=== PATIENT | female | born 2000 | race Caucasian/White ===

== ENCOUNTER 2019-06-12 16:17 | Emergency (ER) | payer MEDICAID ==
[2019-06-12] MEDS ORDERED: Ondansetron 4 MG/2 ML SDV IVPUSH ONE (17:04)
[2019-06-12] MEDS ORDERED: Sodium Chloride 0.9% 10 ML Syringe FLUSH PRN (17:04)
[2019-06-12] MEDS ORDERED: Sodium Chloride 0.9% 1,000 ML IV SCH (17:15)
[2019-06-12] MEDS ORDERED: Ketorolac 30 MG/ML SDV IVPUSH SCH (17:30)
--- NOTE | 2019-06-12 19:12 | EDM.PDOC ---
ED HPI GENERAL MEDICAL PROBLEM - General Chief Complaint: Abdominal Pain Stated Complaint: STOMACH PAIN Time Seen by Provider: 06/12/19 16:53 Source of Information: Reports: Patient, RN Notes Reviewed - History of Present Illness INITIAL COMMENTS - FREE TEXT/NARRATIVE: 19-year-old female comes in with abdominal pain. She states that she does have abdominal pain off and on much of the time but this is been more severe than typical, especially since last evening. She did not sleep well last night. Pain is primarily lower abdomen more so on the right than the left without radiation. Nausea this afternoon, has not eaten since breakfast. No vomiting or diarrhea. She did have a BM earlier today that she states was normal. Is been no fever or chills. No Prior abdominal surgeries. Treatments CRITICAL POWER TECHNICIAN: Reports: Other (see below) Other Treatments CRITICAL POWER TECHNICIAN: none Right Abdomen Pain Score (Numeric/FACES): 10 - Related Data Allergies Allergy/AdvReac Type Severity Reaction Status Date / Time No Known Allergies Allergy Verified 06/12/19 16:50 Home Meds: Home Meds Albuterol Sulfate [Albuterol Sulfate Hfa] 1 puff INH ASDIRECTED 06/12/19 [ History] Past Medical History Respiratory History: Reports: Asthma - Past Surgical History HEENT Surgical History: Reports: Oral Surgery Social & Family History - Tobacco Use Smoking Status *Q: Never Smoker - Caffeine Use Caffeine Use: Reports: Coffee, Soda - Recreational Drug Use Recreational Drug Use: No ED ROS GENERAL - Review of Systems Review Of Systems: See Below Constitutional: Denies: Fever, Chills HEENT: Reports: No Symptoms Respiratory: Denies: Shortness of Breath Cardiovascular: Denies: Chest Pain GI/Abdominal: Reports: Abdominal Pain, Decreased Appetite. Denies: Constipation , Diarrhea, Vomiting : Reports: No Symptoms Musculoskeletal: Reports: No Symptoms Skin: Reports: No Symptoms Neurological: Reports: No Symptoms ED EXAM, GI/ABD - Physical Exam Exam: See Below General Appearance: Alert, Mild Distress Throat/Mouth: Normal Inspection Neck: Supple Respiratory/Chest: No Respiratory Distress, Lungs Clear, Normal Breath Sounds Cardiovascular: Regular Rate, Rhythm GI/Abdominal Exam: Soft, Tender (very mild tenderness mid abd and lower mid abd) , Other (miminal tenderness RLQ). No: Guarding, Rebound Neurological: Alert, Oriented, No Motor/Sensory Deficits Skin Exam: Warm, Dry, Normal Color Course - Vital Signs Last Recorded V/S: Last Vital Signs Temp 98.1 F 06/12/19 16:44 Pulse 68 06/12/19 16:44 Resp 20 06/12/19 16:44 BP 125/81 06/12/19 16:44 Pulse Ox 100 06/12/19 16:44 - Orders/Labs/Meds Labs: Laboratory Tests 06/12/19 06/12/19 06/12/19 Range/Units 17:09 17:09 17:09 WBC 11.91 H (3.98-10.04) K/mm3 RBC 4.63 (3.98-5.22) M/mm3 Hgb 13.3 (11.2-15.7) gm/dl Hct 40.5 (34.1-44.9) % MCV 87.5 (79.4-94.8) fl MCH 28.7 (25.6-32.2) pg MCHC 32.8 (32.2-35.5) g/dl RDW Std Deviation 41.1 (36.4-46.3) fL Plt Count 358 (182-369) K/mm3 MPV 10.0 (9.4-12.3) fl Neut % (Auto) 64.4 (34.0-71.1) % Lymph % (Auto) 22.3 (19.3-51.7) % [place] % (Auto) 10.9 (4.7-12.5) % Eos % (Auto) 1.6 (0.7-5.8) Baso % (Auto) 0.5 (0.1-1.2) % Neut # (Auto) 7.68 H (1.56-6.13) K/mm3 Lymph # (Auto) 2.65 (1.18-3.74) K/mm3 [place] # (Auto) 1.30 H (0.24-0.36) K/mm3 Eos # (Auto) 0.19 (0.04-0.36) K/mm3 Baso # (Auto) 0.06 (0.01-0.08) K/mm3 Manual Slide Review Normal smear Sodium 142 (136-145) mEq/L Potassium 3.7 (3.5-5.1) mEq/L Chloride 106 (98-107) mEq/L Carbon Dioxide 25 (21-32) mEq/L Anion Gap 14.7 (5-15) BUN 15 (7-18) mg/dL Creatinine 0.9 (0.55-1.02) mg/dL Est Cr Clr Drug Dosing 92.56 mL/min Estimated GFR (MDRD) > 60 (>60) mL/min BUN/Creatinine Ratio 16.7 (14-18) Glucose 90 (74-106) mg/dL Calcium 9.1 (8.5-10.1) mg/dL Total Bilirubin 0.4 (0.2-1.0) mg/dL AST 17 (15-37) U/L ALT 26 (14-59) U/L Alkaline Phosphatase 84 (46-116) U/L C-Reactive Protein 0.3 (<1.0) mg/dL Total Protein 8.2 (6.4-8.2) g/dl Albumin 4.0 (3.4-5.0) g/dl Globulin 4.2 gm/dL Albumin/Globulin Ratio 1.0 (1-2) HCG, Qual (NEGATIVE) Urine Color (Yellow) Urine Appearance (Clear) Urine pH (5.0-8.0) Ur Specific [place] (1.005-1.030) Urine Protein (Negative) Urine Glucose (UA) (Negative) Urine Ketones (Negative) Urine Occult Blood (Negative) Urine Nitrite (Negative) Urine Bilirubin (Negative) Urine Urobilinogen (0.2-1.0) Ur Leukocyte Esterase (Negative) Urine RBC (0-5) /hpf Urine WBC (0-5) /hpf Ur Squamous Epith Cells (0-5) /hpf Urine Bacteria (FEW) /hpf Urine Mucus (FEW) /hpf 06/12/19 06/12/19 Range/Units 17:09 18:01 WBC (3.98-10.04) K/mm3 RBC (3.98-5.22) M/mm3 Hgb (11.2-15.7) gm/dl Hct (34.1-44.9) % MCV (79.4-94.8) fl MCH (25.6-32.2) pg MCHC (32.2-35.5) g/dl RDW Std Deviation (36.4-46.3) fL Plt Count (182-369) K/mm3 MPV (9.4-12.3) fl Neut % (Auto) (34.0-71.1) % Lymph % (Auto) (19.3-51.7) % [place] % (Auto) (4.7-12.5) % Eos % (Auto) (0.7-5.8) Baso % (Auto) (0.1-1.2) % Neut # (Auto) (1.56-6.13) K/mm3 Lymph # (Auto) (1.18-3.74) K/mm3 [place] # (Auto) (0.24-0.36) K/mm3 Eos # (Auto) (0.04-0.36) K/mm3 Baso # (Auto) (0.01-0.08) K/mm3 Manual Slide Review Sodium (136-145) mEq/L Potassium (3.5-5.1) mEq/L Chloride (98-107) mEq/L Carbon Dioxide (21-32) mEq/L Anion Gap (5-15) BUN (7-18) mg/dL Creatinine (0.55-1.02) mg/dL Est Cr Clr Drug Dosing mL/min Estimated GFR (MDRD) (>60) mL/min BUN/Creatinine Ratio (14-18) Glucose (74-106) mg/dL Calcium (8.5-10.1) mg/dL Total Bilirubin (0.2-1.0) mg/dL AST (15-37) U/L ALT (14-59) U/L Alkaline Phosphatase (46-116) U/L C-Reactive Protein (<1.0) mg/dL Total Protein (6.4-8.2) g/dl Albumin (3.4-5.0) g/dl Globulin gm/dL Albumin/Globulin Ratio (1-2) HCG, Qual Negative (NEGATIVE) Urine Color Yellow (Yellow) Urine Appearance Clear (Clear) Urine pH 6.0 (5.0-8.0) Ur Specific [place] > or = 1.030 (1.005-1.030) Urine Protein Negative (Negative) Urine Glucose (UA) Negative (Negative) Urine Ketones Negative (Negative) Urine Occult Blood Negative (Negative) Urine Nitrite Negative (Negative) Urine Bilirubin Negative (Negative) Urine Urobilinogen 0.2 (0.2-1.0) Ur Leukocyte Esterase Negative (Negative) Urine RBC 0-5 (0-5) /hpf Urine WBC 5-10 H (0-5) /hpf Ur Squamous Epith Cells 10-20 H (0-5) /hpf Urine Bacteria Rare (FEW) /hpf Urine Mucus Moderate H (FEW) /hpf Meds: Medications Discontinued Medications Generic Name Dose Route Start Last Admin Trade Name Freq PRN Reason Stop Dose Admin Sodium Chloride 1,000 mls @ 999 mls/hr 06/12/19 17:15 06/12/19 17:22 Normal Saline IV 999 mls/hr ONETIME DELL Administration Ketorolac Tromethamine 30 mg 06/12/19 17:30 06/12/19 17:22 Toradol IVPUSH 30 mg ONETIME DELL Administration Ondansetron HCl 4 mg 06/12/19 17:04 06/12/19 17:21 Zofran IVPUSH 06/12/19 17:05 4 mg ONETIME ONE Administration Sodium Chloride 10 ml 06/12/19 17:04 06/12/19 17:37 Saline Flush FLUSH 10 ml ASDIRECTED PRN Administration Keep Vein Open Departure - Departure Time of Disposition: 20:01 Disposition: Home, Self-Care 01 Condition: Fair Clinical Impression: Abdominal pain Qualifiers: Abdominal location: lower abdomen, unspecified Qualified Code(s): R10.30 - Lower abdominal pain, unspecified - Discharge Information Instructions: Abdominal Pain, Adult, [id number] Referrals: PCP,None [Primary Care Provider] - Forms: ED Department Discharge, ED Return to Work/School Form Additional Instructions: Clear liquids and very bland diet as tolerated. Plenty of water to maintain hydration. Stool softener or laxative as needed. Follow-up clinic tomorrow if discomfort not better as expected. Return to ED if symptoms worsening for reevaluation or if unable to get into the clinic tomorrow for recheck. Sepsis Event Note - Evaluation Sepsis Screening Result: No Definite Risk - Focused Exam Date Exam was Performed: 06/14/19 Time Exam was Performed: 02:21
--- NOTE | 2019-06-12 20:04 | CR ---
Abdomen: Supine view of the abdomen was obtained. Scattered gas within small bowel and colon is seen. At this point this appears to be within normal limits. No abnormal calcifications or soft tissue abnormality is seen. Bony structures are unremarkable. Impression: 1. Nothing acute is seen on supine abdominal x-ray. 2. If patient continues to be symptomatic, follow-up study could be obtained in 24 hours. Diagnostic code #1 Study was dictated in MDT
== END 2019-06-12 20:18 | disposition home or self-care (01) ==
LOC: JD.ED 16:17
DX: R10.31 Right lower quadrant pain (principal); J45.909 Unspecified asthma, uncomplicated
CPT/HCPCS: 36415; 74018; 80053; 81001; 84703; 85025; 86140; 96361; 96374; 96375; 99284; J1885; J2405; J7030

== ENCOUNTER 2019-11-17 15:51 | Emergency (ER) | payer MEDICAID ==
[2019-11-17] MEDS ORDERED: Aluminum Hydroxide/Magnesium Hydroxide/Simethicone Susp 30 ML Cup PO ONE (16:19)
[2019-11-17] MEDS ORDERED: Dicyclomine 10 MG Cap PO ONE (16:19)
--- NOTE | 2019-11-17 16:19 | EDM.PDOC ---
ED HPI GENERAL MEDICAL PROBLEM - General Chief Complaint: Cardiovascular Problem Stated Complaint: CHEST PAIN AND SOB Time Seen by Provider: 11/17/19 16:13 Source of Information: Reports: Patient History Limitations: Reports: No Limitations - History of Present Illness INITIAL COMMENTS - FREE TEXT/NARRATIVE: 19-year-old female presents to the ED for evaluation of dyspnea. She has known asthma. She has used her inhaler a multitude of occasions starting yesterday and last night and today without any relief. She has subjective dyspnea. Her sats are 100% on room air. She is afebrile. She has not ate much today. She feels pressure discomfort in the pit of her stomach but no nausea or vomiting and no burping or belching. She even tried drinking soda pop with no burping or belching. She does not usually experience any heartburn or GERD. She admits that she works at the [employer] here in [place] and does not wear a protective mask. She states she cannot breathe with it on. Therefore she has potential exposure to COVID 19. She has no diarrhea. No change in smell or taste. Onset: Gradual Onset Date: 11/16/19 (Developed gradually worsening dyspnea yesterday afternoon and is persisted overnight and today.) Duration: Hour(s):, Getting Worse Location: Reports: Chest (Subjective dyspnea.), Abdomen (Pressure in the epigastrium or pit of her stomach) Quality: Reports: Ache (Ache pressure discomfort in the pit of her stomach witho ut burping or belching.) Severity: Moderate Improves with: Reports: None Worsens with: Reports: None Context: Denies: Activity, Exercise, Lifting, Sick Contact, Trauma, Other Associated Symptoms: Reports: Chest Pain, Loss of Appetite, Malaise, Shortness of Breath. 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 (see below) (.) Middle Chest Pain Score (Numeric/FACES): 7 Upper Abdomen Pain Score (Numeric/FACES): 7 - Related Data Allergies Allergy/AdvReac Type Severity Reaction Status Date / Time No Known Allergies Allergy Verified 06/12/19 16:50 Home Meds: Home Meds Albuterol Sulfate [Albuterol Sulfate Hfa] 1 puff INH ASDIRECTED 06/12/19 [History] Albuterol Sulfate [Albuterol Sulfate Hfa] 18 gm IH Q3H PRN #1 hfa.aer.ad 0 11/17/19 [Rx] predniSONE [Prednisone] 20 mg PO BID #10 tablet 11/17/19 [Rx] Past Medical History Respiratory History: Reports: Asthma - Past Surgical History HEENT Surgical History: Reports: Oral Surgery Social & Family History - Caffeine Use Caffeine Use: Reports: Coffee, Soda - Living Situation & Occupation Living situation: Reports: Single Occupation: Employed ED ROS GENERAL - Review of Systems Review Of Systems: See Below Constitutional: Reports: Malaise, Weakness, Fatigue, Decreased Appetite. Denies: Fever, Chills, Weight Loss HEENT: Reports: No Symptoms Respiratory: Reports: Shortness of Breath, Wheezing, Cough. Denies: Pleuritic Chest Pain (There is no wheezing), Sputum, Hemoptysis, Other Cardiovascular: Reports: Chest Pain (Occasional nonproductive cough), Dyspnea on Exertion. Denies: Blood Pressure Problem, Claudication ( lower retrosternal pressure discomfort more in the pit of her stomach.), Edema, Lightheadedness, Orthopnea Endocrine: Reports: No Symptoms GI/Abdominal: Reports: Abdominal Pain (Epigastric pressure discomfort with no burping or belching or GERD.), Decreased Appetite. Denies: Constipation, Diarrhea, Difficulty Swallowing, Distension, Flatus, Hematemesis, Hematochezia, Melena, Mucous in Stool, Nausea, Stool Incontinence : Reports: No Symptoms Musculoskeletal: Reports: No Symptoms Skin: Reports: No Symptoms Neurological: Reports: No Symptoms Psychiatric: Reports: No Symptoms Hematologic/Lymphatic: Reports: No Symptoms Immunologic: Reports: No Symptoms ED EXAM, GENERAL - Physical Exam Exam: See Below Exam Limited By: No Limitations General Appearance: Alert, WD/WN, No Apparent Distress, Other (Temperature is 36.6 heart rate 81 respiratory of 20 with O2 sats of 99 to 100%. BP is 95/83.) Eye Exam: Bilateral Eye: Normal Inspection, PERRL Ears: Normal TMs Throat/Mouth: Normal Inspection, Normal Lips, Normal Teeth, Normal Oropharynx, Other (Normal) Head: Atraumatic, Normocephalic ( tonsils) Neck: Normal Inspection, Supple, Non-Tender, Full Range of Motion. No: Carotid Bruit, Lymphadenopathy (L), Lymphadenopathy (R) Respiratory/Chest: No Respiratory Distress, Lungs Clear, Normal Breath Sounds, No Accessory Muscle Use, Chest Non-Tender, Decreased Breath Sounds (Slightly decreased breath sounds of the right lung base.). No: Rhonchi, Wheezing Cardiovascular: Normal Peripheral Pulses, Regular Rate, Rhythm, No Edema, No Gallop, No Murmur, No Rub Peripheral Pulses: 3+: Carotid (L), Carotid (R), Posterior Tibial (L), Posterior Tibial (R), Dorsalis Pedis (L), Dorsalis Pedis (R) GI/Abdominal: Normal Bowel Sounds, Soft, Non-Tender, No Organomegaly, No Abnormal Bruit, No Mass, Pelvis Stable, Other (Mildly obese.) Back Exam: Normal Inspection, Full Range of Motion. No: CVA Tenderness (L), CVA Tenderness (R) Extremities: Normal Inspection, Normal Range of Motion, Non-Tender, No Pedal Edema Neurological: Alert, Oriented, CN II-XII Intact, Normal Cognition, Normal Gait Psychiatric: Normal Affect, Normal Mood Skin Exam: Warm, Dry, Intact, Normal Color, No Rash EKG INTERPRETATION EKG Date: 11/17/19 Time: 16:49 Rhythm: NSR Rate (Beats/Min): 80 [place]: Normal P-Wave: Present QRS: Normal ST-T: Other (Wave flattening in lead V3 nonspecific finding) QT: Normal EKG Interpretation Comments: Normal ECG Course - Vital Signs Last Recorded V/S: Last Vital Signs Temp 36.3 C 11/17/19 17:54 Pulse 90 11/17/19 17:54 Resp 20 11/17/19 17:54 BP 127/56 L 11/17/19 17:54 Pulse Ox 100 11/17/19 17:54 - Orders/Labs/Meds Orders: Active Orders 24 hr Category Date Time Status EKG Documentation Completion [RC] STAT Care 11/17/19 16:14 Active RT Aerosol Therapy [RC] ASDIRECTED Care 11/17/19 17:19 Active Albuterol/Ipratropium [DuoNeb 3.0-0.5 MG/3 ML] Med 11/17/19 17:18 Active 3 ml NEB Q4H PRN Medication Orders Albuterol/Ipratropium (Duoneb 3.0-0.5 Mg/3 Ml) 3 ml NEB Q4H PRN PRN Reason: Shortness Of Breath/wheezing Last Admin: 11/17/19 17:40 Dose: 3 ml Documented by: ALEXA Labs: Laboratory Tests 11/17/19 11/17/19 11/17/19 Range/Units 16:57 16:57 16:57 WBC 9.93 (3.98-10.04) K/mm3 RBC 4.45 (3.98-5.22) M/mm3 Hgb 12.7 (11.2-15.7) gm/dl Hct 38.4 (34.1-44.9) % MCV 86.3 (79.4-94.8) fl MCH 28.5 (25.6-32.2) pg MCHC 33.1 (32.2-35.5) g/dl RDW Std Deviation 41.3 (36.4-46.3) fL Plt Count 298 (182-369) K/mm3 MPV 9.6 (9.4-12.3) fl Neut % (Auto) 59.1 (34.0-71.1) % Lymph % (Auto) 27.0 (19.3-51.7) % [place] % (Auto) 10.3 (4.7-12.5) % Eos % (Auto) 2.4 (0.7-5.8) Baso % (Auto) 0.9 (0.1-1.2) % Neut # (Auto) 5.87 (1.56-6.13) K/mm3 Lymph # (Auto) 2.68 (1.18-3.74) K/mm3 [place] # (Auto) 1.02 H (0.24-0.36) K/mm3 Eos # (Auto) 0.24 (0.04-0.36) K/mm3 Baso # (Auto) 0.09 H (0.01-0.08) K/mm3 D-Dimer, Quantitative 0.28 (0.19-0.50) mg/L Sodium 137 (136-145) mEq/L Potassium 3.6 (3.5-5.1) mEq/L Chloride 104 (98-107) mEq/L Carbon Dioxide 25 (21-32) mEq/L Anion Gap 11.6 (5-15) BUN 17 (7-18) mg/dL Creatinine 0.8 (0.55-1.02) mg/dL Est Cr Clr Drug Dosing 104.14 mL/min Estimated GFR (MDRD) > 60 (>60) mL/min BUN/Creatinine Ratio 21.3 H (14-18) Glucose 76 (74-106) mg/dL Calcium 8.9 (8.5-10.1) mg/dL Ferritin (8-252) ng/ml Total Bilirubin 0.2 (0.2-1.0) mg/dL AST 20 (15-37) U/L ALT 28 (14-59) U/L Alkaline Phosphatase 79 (46-116) U/L Troponin I < 0.017 (0.00-0.056) ng/mL C-Reactive Protein 1.5 H* (<1.0) mg/dL Total Protein 7.9 (6.4-8.2) g/dl Albumin 3.6 (3.4-5.0) g/dl Globulin 4.3 gm/dL Albumin/Globulin Ratio 0.8 L (1-2) COVID-19 (DIMITRY) (NEGATIVE) 11/17/19 11/17/19 Range/Units 16:57 18:05 WBC (3.98-10.04) K/mm3 RBC (3.98-5.22) M/mm3 Hgb (11.2-15.7) gm/dl Hct (34.1-44.9) % MCV (79.4-94.8) fl MCH (25.6-32.2) pg MCHC (32.2-35.5) g/dl RDW Std Deviation (36.4-46.3) fL Plt Count (182-369) K/mm3 MPV (9.4-12.3) fl Neut % (Auto) (34.0-71.1) % Lymph % (Auto) (19.3-51.7) % [place] % (Auto) (4.7-12.5) % Eos % (Auto) (0.7-5.8) Baso % (Auto) (0.1-1.2) % Neut # (Auto) (1.56-6.13) K/mm3 Lymph # (Auto) (1.18-3.74) K/mm3 [place] # (Auto) (0.24-0.36) K/mm3 Eos # (Auto) (0.04-0.36) K/mm3 Baso # (Auto) (0.01-0.08) K/mm3 D-Dimer, Quantitative (0.19-0.50) mg/L Sodium (136-145) mEq/L Potassium (3.5-5.1) mEq/L Chloride (98-107) mEq/L Carbon Dioxide (21-32) mEq/L Anion Gap (5-15) BUN (7-18) mg/dL Creatinine (0.55-1.02) mg/dL Est Cr Clr Drug Dosing mL/min Estimated GFR (MDRD) (>60) mL/min BUN/Creatinine Ratio (14-18) Glucose (74-106) mg/dL Calcium (8.5-10.1) mg/dL Ferritin 36 (8-252) ng/ml Total Bilirubin (0.2-1.0) mg/dL AST (15-37) U/L ALT (14-59) U/L Alkaline Phosphatase (46-116) U/L Troponin I (0.00-0.056) ng/mL C-Reactive Protein (<1.0) mg/dL Total Protein (6.4-8.2) g/dl Albumin (3.4-5.0) g/dl Globulin gm/dL Albumin/Globulin Ratio (1-2) COVID-19 (DIMITRY) Negative (NEGATIVE) Meds: Medications Generic Name Dose Route Start Last Admin Trade Name Freq PRN Reason Stop Dose Admin Albuterol/Ipratropium 3 ml 11/17/19 17:18 11/17/19 17:40 Duoneb 3.0-0.5 Mg/3 Ml NEB 3 ml Q4H PRN Administration Shortness Of Breath/wheezing Discontinued Medications Generic Name Dose Route Start Last Admin Trade Name Freq PRN Reason Stop Dose Admin Al Hydroxide/Mg Hydroxide 30 ml 11/17/19 16:19 11/17/19 17:56 Mag-Al Plus PO 11/17/19 16:20 30 ml ONETIME ONE Administration Albuterol/Ipratropium Confirm 11/17/19 17:30 Duoneb 3.0-0.5 Mg/3 Ml Administered 11/17/19 17:31 Dose 3 ml .ROUTE .STK-MED ONE Dicyclomine HCl 20 mg 11/17/19 16:19 11/17/19 17:56 Bentyl PO 11/17/19 16:20 20 mg ONETIME ONE Administration - Radiology Interpretation Free Text/Narrative:: 19-year-old female presents to the ED with dyspnea. She has used her albuterol inhalers multiple 2 different times over the last 24 hours with no relief. On examination she is not wheezing. Her O2 sats are 99 to 100% on room air but she has subjective dyspnea. 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 Plan she will have a single view chest x-ray. Routine lab work and including a COVID-19 screen. - Re-Assessments/Exams Free Text/Narrative Re-Assessment/Exam: 11/17/19 17:11 x-ray done portably reveals clear lung [place]ell and no hyperinflated lung [place]. Cardiac silhouette is normal as well. 11/17/19 17:42 D-dimer is 0.28. Total white count is 9.93 differential shows 59% neutrophils on the auto differential. Hemoglobin is 12.7 with hematocrit of 38.4 platelet counts 298,000. 11/17/19 17:59 D-dimer was 0.28. Sodium 137 with a potassium of 3.6. Chloride is 104 with a bicarb of 25. Anion gap is 11.6. BUN is 17 with a creatinine of 0.8. GFR is greater than 60. Glucose is 76 with a calcium of 8.9 serum ferritin is 36 liver function is normal troponin I was less than 0.017 C- reactive protein is 1.5 total protein 7.9 albumin fraction 3.6 COVID-19 test is pending 11/17/19 18:30 Covid- 19 test is negative. 11/17/19 18:35 still feels a central pressure in her upper chest and I suspect it may be due to bronchospasm of the major bronchial tubes versus lower lungs. I am going to therefore place her on prednisone 20 mg twice daily breakfast and supper for the next 5 days. She is going to see a physician in the near future and talk about going on low-dose steroid inhaler twice daily to bring her asthma under better control. I will also refill her albuterol metered-dose inhaler. Departure - Departure Time of Disposition: 18:36 Disposition: Home, Self-Care 01 Reason for Transfer *Q: Other Condition: Fair Clinical Impression: Non-cardiac chest pain, COVID-19 ruled out, Bronchial spasm Prescriptions: Albuterol Sulfate [Albuterol Sulfate Hfa] 18 gm IH Q3H PRN #1 hfa.aer.ad PRN Reason: Wheezing/shortness of breath predniSONE [Prednisone] 20 mg PO BID #10 tablet Instructions: Bronchospasm, Adult, Shortness of Breath, Adult, [id number], Asthma, Adult Referrals: PCP,None [Primary Care Provider] - Forms: ED Department Discharge Additional Instructions: Evaluation in the emergency room today in regards to increased symptoms of asthma i.e. shortness of breath and wheezing with out much improvement with albuterol metered-dose inhaler. History suggest that asthma is not in the best of control and I would encourage you to follow-up with a primary care provider to discuss an inhaled corticosteroid to take on a daily basis to bring your asthma under control. Due to the nature of your job and concerns about COVID-19 exposure COVID-19 testing was done and it proved to be negative. Chest x-ray was also within normal limits showing no signs of pneumonia. Diagnosis is bronchospasm which means the upper tubes in your lung that supply oxygen are in spasm due to inflammation of the muscles with thin. Treatment is to be prednisone 20 mg starting tonight with supper and then take twice daily with breakfast and supper for 5 days. Continue to use your albuterol metered-dose inhaler 2 puffs every 2-3 hours as needed for shortness of breath and/or wheezing. Sepsis Event Note (ED) - Evaluation Sepsis Screening Result: No Definite Risk - Focused Exam Vital Signs: Vital Signs Temp Pulse Resp BP Pulse Ox Pulse Ox 11/17/19 17:54 36.3 C 90 20 127/56 L 100 11/17/19 17:19 100 11/17/19 16:06 36.6 C 81 20 95/83 99 - My Orders Last 24 Hours: My Active Orders 11/17/19 16:14 EKG Documentation Completion [RC] STAT 11/17/19 17:18 Albuterol/Ipratropium [DuoNeb 3.0-0.5 MG/3 ML] 3 ml NEB Q4H PRN 11/17/19 17:19 RT Aerosol Therapy [RC] ASDIRECTED - Assessment/Plan Last 24 Hours: My Active Orders 11/17/19 16:14 EKG Documentation Completion [RC] STAT 11/17/19 17:18 Albuterol/Ipratropium [DuoNeb 3.0-0.5 MG/3 ML] 3 ml NEB Q4H PRN 11/17/19 17:19 RT Aerosol Therapy [RC] ASDIRECTED
--- NOTE | 2019-11-17 16:37 | CR ---
Chest: Portable view of the chest was obtained. Comparison: No prior chest imaging is available. Heart size and mediastinum are within normal limits for portable technique. Lungs show no acute parenchymal change. Bony structures are grossly intact. Impression: 1. Nothing acute is appreciated on portable chest x-ray. Diagnostic code #1 This report was dictated in MDT
[2019-11-17] MEDS ORDERED: Albuterol/Ipratropium 3.0-0.5 MG/3 ML Neb Soln NEB PRN (17:18)
[2019-11-17] MEDS ORDERED: Albuterol/Ipratropium 3.0-0.5 MG/3 ML Neb Soln ONE (17:30)
== END 2019-11-17 19:00 | disposition home or self-care (01) ==
LOC: JD.ED 15:51
DX: J98.01 Acute bronchospasm (principal); J45.909 Unspecified asthma, uncomplicated; Z20.828 Contact with and (suspected) exposure to other viral communicable diseases
CPT/HCPCS: 36415; 71045; 80053; 82728; 84484; 85025; 85379; 86140; 87635; 93005; 94640; 99285; A9270; 93010; 99284; J7620-GY; U0002